=== PATIENT | male | born 1975 | race Hispanic/Latino ===

== ENCOUNTER → 2019-11-04 | Outpatient (CLI) | payer OTHER ==
--- NOTE | 2019-11-04 13:43 | Diagnostic Imaging Report ---
TECHNIQUE: Computed tomography imaging of the LEFT ANKLE was performed WITHOUT injected contrast. Dose modulation, iterative reconstruction, and/or weight based adjustment of the mA/kV was utilized to reduce the radiation dose to as low as reasonably achievable. COMPARISON: None available. HISTORY: Lateral ankle pain FINDINGS: Age-indeterminate punctate avulsion/ossific focus in the region of the anterior talofibular ligament and superficial deltoid ligament. Soft tissue swelling of the ankle. The joints are normally aligned. 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 IMPRESSION: Age-indeterminate punctate avulsion/ossific focus in the region of the anterior talofibular ligament and superficial deltoid ligament. Signed by: Dr. Micah Cardenas M.D. on 11/04/2019 1:40 PM
== END ==
LOC: CT 12:33
PROVIDERS: ATTEND Family Medicine
DX: M25.572 Pain in left ankle and joints of left foot (principal)